=== PATIENT | female | born 1970 | race African-American/Black ===

== ENCOUNTER 2021-05-24 17:07 | Inpatient (IN) | payer BC ==
[~2021-05-24] VITALS: Ht 167.6 cm; Wt 59.9 kg
[2021-05-24] MEDS ORDERED: SODIUM CHLORIDE 0.9% 1,000 ML IV ONE (17:45)
[2021-05-24 18:05] LABS: BASOPHILS % 0.6 % (0.0-2.0); HEMATOCRIT. 41.1 % (36.0-48.0); HEMOGLOBIN. 13.6 g/dL (12.0-16.0); LYMPHOCYTES % 12.3 % (20.0-50.0); MEAN CORPUSCULAR HEMOGLOBIN 29.6 pg (28.0-32.0); MEAN CORPUSCULAR VOLUME 89.5 fL (81.0-99.0); MEAN PLATELET VOLUME 8.6 fl (7.4-10.4); MONOCYTES % 2.6 % (2.0-8.0); NEUTROPHILS % 84.5 % (40.0-76.0); PLATELET 259 x1000/uL (130-400); RED BLOOD CELL COUNT 4.59 mill/uL (4.2-5.4); RED CELL DISTRIBUTION WIDTH 18.4 % (11.6-14.6)
[2021-05-24 18:12] LABS: CHLORIDE 104 mEq/L (98-107)
[2021-05-24 18:15] LABS: HCG SCREEN NEGATIVE
[2021-05-24 18:16] LABS: ETHANOL BLOOD < 10 mg/dL
[2021-05-24] MEDS ORDERED: CEFTRIAXONE 1 G PREMIX 50 ML IV ONE (19:00)
[2021-05-24] MEDS ORDERED: AZITHROMYCIN 500 MG in DEXT 5% WATER 250 ML IV SCH (19:00)
[2021-05-24 21:20] LABS: CLARITY URINE CLEAR (CLEAR); COLOR URINE DARK YELLOW (YELLOW); KETONES URINE TRACE (NEGATIVE); LEUKOCYTE ESTERASE URINE NEGATIVE (NEGATIVE); NITRITE URINE NEGATIVE (NEGATIVE); OCCULT BLOOD URINE TRACE (NEGATIVE); PH URINE 5.5 (4.5-8.0); PROTEIN URINE 3+ (NEGATIVE); SPECIFIC GRAVITY URINE 1.019 (1.005-1.030)
[2021-05-24 21:30] LABS: *BARBITURATES SCREEN URINE NEGATIVE (NEGATIVE); *BENZODIAZEPINES SCREEN URINE NEGATIVE (NEGATIVE); *COCAINE SCREEN URINE NEGATIVE (NEGATIVE); METHADONE URINE SCREEN NEGATIVE (NEGATIVE); OPIATES URINE SCREEN NEGATIVE (NEGATIVE)
[2021-05-24 21:31] LABS: *AMPHETAMINES SCREEN URINE NEGATIVE (NEGATIVE); CANNABINOID URINE SCREEN NEGATIVE (NEGATIVE); PHENCYCLIDINE URINE SCREEN NEGATIVE (NEGATIVE)
[2021-05-24] MEDS ORDERED: ONDANSETRON HCL 4MG/2ML INJ IV PRN (23:00)
[2021-05-24] MEDS ORDERED: CLONIDINE 0.1MG TABLET PO PRN (23:00)
[2021-05-24] MEDS ORDERED: GUAIFENESIN 200MG/10ML SUGAR FREE UDC PO PRN (23:00)
[2021-05-24] MEDS ORDERED: ACETAMINOPHEN 325MG TABLET PO PRN (23:00)
[2021-05-24] MEDS: AMLODIPINE 10MG TABLET PO SCH (23:00)
[2021-05-24] MEDS ORDERED: IOHEXOL-350 100 ML BOTTLE ONE (23:09)
[2021-05-25] VITALS (49 sets, daily range): BP systolic 119–164; BP diastolic 55–117
[2021-05-25] MEDS ORDERED: ASPI-1497 PO (05:06)
[2021-05-25] MEDS ORDERED: LORA10TA7 PO (05:06)
[2021-05-25] MEDS ORDERED: DEXTROSE 50% WATER 50ML SYRINGE IV PRN (07:30)
[2021-05-25] MEDS: INSULIN LISPRO 100 UNITS/ML SUBCUT SCH ×4 (07:50→20:58)
[2021-05-25 08:23] LABS: BASOPHILS % 0.4 % (0.0-2.0); HEMATOCRIT. 40.6 % (36.0-48.0); HEMOGLOBIN. 13.3 g/dL (12.0-16.0); LYMPHOCYTES % 17.8 % (20.0-50.0); MEAN CORPUSCULAR HEMOGLOBIN 29.8 pg (28.0-32.0); MEAN CORPUSCULAR VOLUME 91.2 fL (81.0-99.0); MEAN PLATELET VOLUME 8.6 fl (7.4-10.4); NEUTROPHILS % 72.8 % (40.0-76.0); PLATELET 269 x1000/uL (130-400); RED BLOOD CELL COUNT 4.45 mill/uL (4.2-5.4); RED CELL DISTRIBUTION WIDTH 18.6 % (11.6-14.6)
[2021-05-25] MEDS: AMLODIPINE 10MG TABLET PO SCH (09:00)
[2021-05-25 09:04] LABS: CHLORIDE 108 mEq/L (98-107)
[2021-05-25 09:06] LABS: BG BASE EXCESS -0.5 mmol/L (-2.0-2.0); BG CARBOXYHEMOGLOBIN 1.1 % (0.5-1.5); BG DEOXYHEMOGLOBIN 1.3 % (0.0-5.0); BG FRACTION INSPIRED OXYGEN 28; BG HCO3 ACT 22.4 mmol/L (22.0-26.0); BG METHEMOGLOBIN 0.3 % (0.0-1.5); BG OXYGEN SATURATION 98.7 % (92.0-98.5); BG OXYHEMOGLOBIN 97.3 % (94.0-97.0); BG PCO2 32.1 mmHg (35.0-45.0); BG PH 7.462 (7.350-7.450); BG PO2 127.7 mmHg (75.0-100.0); BG TOTAL HEMOGLOBIN 13.8 g/dL (12.0-18.0); BG VENT MODE NASAL CANNULA
[2021-05-25] MEDS: BLOOD SUGAR DIAGNOSTIC STRIP TEST SCH ×3 (11:51→20:58)
[2021-05-25] MEDS ORDERED: ENOXAPARIN 40MG/0.4ML SYR SUBCUT SCH (12:00)
[2021-05-25] MEDS: ASPIRIN 81MG TABLET PO SCH (12:10)
[2021-05-25] MEDS: HYDRALAZINE 20MG/ML VIAL IV PRN (12:10)
[2021-05-25] MEDS ORDERED: ATORVASTATIN CALCIUM 40MG TABLET PO SCH (21:00)
[2021-05-26] VITALS (51 sets, daily range): BP systolic 115–169; BP diastolic 75–117
[2021-05-26] MEDS: HYDRALAZINE 20MG/ML VIAL IV PRN (02:06)
[2021-05-26 05:28] LABS: BASOPHILS % 0.1 % (0.0-2.0); HEMATOCRIT. 40.1 % (36.0-48.0); HEMOGLOBIN. 13.2 g/dL (12.0-16.0); LYMPHOCYTES % 10.8 % (20.0-50.0); MEAN CORPUSCULAR HEMOGLOBIN 29.4 pg (28.0-32.0); MEAN CORPUSCULAR VOLUME 89.7 fL (81.0-99.0); MEAN PLATELET VOLUME 8.5 fl (7.4-10.4); MONOCYTES % 8.8 % (2.0-8.0); NEUTROPHILS % 80.3 % (40.0-76.0); PLATELET 259 x1000/uL (130-400); RED BLOOD CELL COUNT 4.47 mill/uL (4.2-5.4); RED CELL DISTRIBUTION WIDTH 18.6 % (11.6-14.6)
[2021-05-26 05:40] LABS: CHLORIDE 110 mEq/L (98-107)
[2021-05-26] MEDS: BLOOD SUGAR DIAGNOSTIC STRIP TEST SCH ×3 (06:16→17:14)
[2021-05-26] MEDS: INSULIN LISPRO 100 UNITS/ML SUBCUT SCH ×3 (06:16→17:27)
[2021-05-26] MEDS: ASPIRIN 81MG TABLET PO SCH (08:37)
[2021-05-26] MEDS: AMLODIPINE 10MG TABLET PO SCH (08:37)
[2021-05-26] MEDS ORDERED: ENOXAPARIN 30MG/0.3ML SYR SUBCUT SCH (09:00)
[2021-05-26] MEDS ORDERED: ETOMIDATE 2MG/ML 10ML VIAL IV ONE (09:22)
[2021-05-26] MEDS ORDERED: SODIUM CHLORIDE 0.9% 10ML VIAL ONE (09:22)
[2021-05-26] MEDS ORDERED: VECURONIUM BROMIDE 10 MG/VIAL IV ONE (09:22)
[2021-05-26] MEDS ORDERED: PROPOFOL 10MG/ML 100ML 100 ML IV PRN ×2 (12:15→13:00)
[2021-05-26] MEDS ORDERED: LIDOCAINE HCL 1% 20ML VIAL (Pyxis) INJ ONE (13:13)
[2021-05-26] MEDS ORDERED: BISACODYL 10MG SUPP PR PRN (13:15)
[2021-05-26] MEDS ORDERED: IPRATROPIUM/ALBUTEROL 0.5-3(2.5)MG/3ML NEB HHN PRN (13:15)
[2021-05-26 13:29] LABS: BG BASE EXCESS 0.1 mmol/L (-2.0-2.0); BG CARBOXYHEMOGLOBIN 0.4 % (0.5-1.5); BG DEOXYHEMOGLOBIN 0.7 % (0.0-5.0); BG FRACTION INSPIRED OXYGEN 40; BG HCO3 ACT 21.1 mmol/L (22.0-26.0); BG METHEMOGLOBIN 0.2 % (0.0-1.5); BG OXYGEN SATURATION 99.3 % (92.0-98.5); BG OXYHEMOGLOBIN 98.7 % (94.0-97.0); BG PCO2 25.4 mmHg (35.0-45.0); BG PH 7.538 (7.350-7.450); BG PO2 185.4 mmHg (75.0-100.0); BG SAMPLE SITE RIGHT RADIAL; BG TOTAL HEMOGLOBIN 13.8 g/dL (12.0-18.0); BG VENT MODE VENT - AC
[2021-05-26] MEDS ORDERED: CLOPIDOGREL 75MG TABLET PO SCH (13:30)
[2021-05-26] MEDS ORDERED: SACU1TAB MT (14:45)
[2021-05-26] MEDS ORDERED: PIPERACILLIN/TAZOBACTAM 3.375 G in DEXTROSE 5% WATER 50 ML IV SCH (15:00)
[2021-05-26 17:56] LABS: INR 1.2; PROTHROMBIN TIME 12.3 sec (9.6-11.0)
[2021-05-26] MEDS ORDERED: FAMOTIDINE 20MG/2ML VIAL IV SCH (21:00)
[2021-05-27] MEDS ORDERED: FAMOTIDINE 20MG/2ML VIAL IV SCH (09:00)
== END 2021-05-26 22:24 | disposition short-term general hospital (02) | DRG 64 ==
LOC: ER 17:07 → MICUSO 21:58 → ENRESERV 05-25 00:37 → 6WST 05-25 02:32 → CVICU 05-25 08:40
PROVIDERS: ADMIT Internal Medicine; ATTEND Internal Medicine
PROC: 05HY33Z Insertion of Infusion Device into Upper Vein, Percutaneous Approach (ICD-10-PCS; principal; 2021-05-26)
PROC: B54MZZA Ultrasonography of Right Upper Extremity Veins, Guidance (ICD-10-PCS; 2021-05-26)
PROC: 0BH17EZ Insertion of Endotracheal Airway into Trachea, Via Natural or Artificial Opening (ICD-10-PCS; 2021-05-26)
PROC: 5A1935Z Respiratory Ventilation, Less than 24 Consecutive Hours (ICD-10-PCS; 2021-05-26)
DX: I63.9 Cerebral infarction, unspecified (principal); J96.00 Acute respiratory failure, unspecified whether with hypoxia or hypercapnia; G93.40 Encephalopathy, unspecified; I16.0 Hypertensive urgency; E11.65 Type 2 diabetes mellitus with hyperglycemia; Z20.822 Contact with and (suspected) exposure to COVID-19; I10 Essential (primary) hypertension; R47.01 Aphasia; E78.5 Hyperlipidemia, unspecified; E80.6 Other disorders of bilirubin metabolism; G43.909 Migraine, unspecified, not intractable, without status migrainosus; Z79.02 Long term (current) use of antithrombotics/antiplatelets; Z79.899 Other long term (current) drug therapy; Z79.82 Long term (current) use of aspirin; Z86.16 Personal history of COVID-19; Z87.891 Personal history of nicotine dependence
CPT/HCPCS: 31500; 36415; 36600; 70496; 70498; 70551; 71045; 76937; 80048; 80053; 80061; 80305; 80307; 80320; 80329; 81003; 82140; 82375; 82805; 82962; 83036; 84484; 84703; 85025; 86850; 86900; 87070; 93005; 93306; 93970; 94002; 99285; C9803; J0360; J0456; J0696; J1650; J2543; J2704; J3490; J7030; J7060; Q9967; U0003; U0005; A4315; G0480